=== PATIENT | female | born 2000 | race Caucasian/White ===

== ENCOUNTER 2025-05-30 19:45 | Emergency (ER) | payer SELFPAY ==
[2025-05-30] VITALS (8 sets, daily range): BP systolic 99–144; BP diastolic 63–80; PULSE 70–85; RESP 17–18; TEMP 36; O2SAT 97–100; BMI 42.5
[2025-05-30 20:28] LABS: Add Manual Diff / Slide Review NO; Hematocrit 36.4 % (36-46); Hemoglobin 12.9 g/dL (12.0-16.0); Lymphocytes Absolute Auto 1900 /uL (1100-4500); Mean Corpuscular HGB Conc 35.5 % (30-36); Mean Corpuscular Hemoglobin 31.1 PG (26-34); Mean Corpuscular Volume 87.5 fL (80-100); Platelet Count 178 X10^3/uL (150-400)
[2025-05-30 20:37] LABS: Pregnancy Test Serum,Qual Positive (Negative)
[2025-05-30 20:40] LABS: Alanine Aminotransferase 32 IU/L (<35); Albumin 4.7 g/dL (3.5-5.0); Albumin Globulin Ratio 1.7 (1.0-2.8); Alkaline Phosphatase 59 U/L (38-126); Blood Urea Nitrogen 10 mg/dL (7-17); Calcium 9.6 mg/dL (8.4-10.2); Carbon Dioxide 22 mmol/L (22-32); Chloride 105 mmol/L (98-107); Culture Indicated Urine Cult Not Indicated; Estimated Glomerular Filt Rate > 60 mL/min (>60); Globulin 2.8 g/dL (1.7-4.1); Glucose 100 mg/dL (70-99); HEMOLYSIS < 15 (0-50); Potassium 3.8 mmol/L (3.4-5.1); Sodium 137 mmol/L (137-145); Total Protein 7.5 g/dL (6.3-8.2)
--- NOTE | 2025-05-30 21:10 | DI.US.S_ITS ---
PROCEDURE: US PELVIC COMPLETE INDICATIONS: Vaginal bleeding,s/p TECHNIQUE: Real-time scanning was performed of the pelvic organs, with image documentation. Additional endovaginal scanning was necessary due to incomplete visualization of the adnexal and endometrial structures by transabdominal scanning. COMPARISON: None. FINDINGS: Uterus: Uterus is anteverted and normal in size at 8.3 x 3.6 x 5.7 cm. The myometrium is homogeneous. The endometrium is distended, and contains heterogeneous, vascular debris measuring 2.9 x 1.0 x 1.4 cm. Ovaries: The right ovary measures 2.5 x 3.4 x 2.1 cm, with a calculated ovarian volume of 9.3 cc. The left ovary measures 2.5 x 3.4 x 2.7 cm, with a calculated ovarian volume of 11.9 cc. The ovaries have a normal sonographic appearance. Less than 12 follicles can be seen in each ovary. No adnexal masses are seen. Other: No pathologic free abdominal or pelvic fluid. IMPRESSION: Endometrium contains complex, vascular debris concerning for retained products of conception. Gynecologic consultation is recommended. We strive to produce accurate, complete, and clear reports of imaging services. To assist us in improving patient care, this report was composed using standard report templates and voice recognition software. Therefore, it may contain abnormal punctuation, insertions and/or omissions. Occasional wrong-word or sound-alike substitutions may occur. Though we review the report and make efforts to correct it, we do recommend that the report be read carefully in proper context to recognize any text inaccuracies. Dictated by: Arnav Gunter M.D. on 05/30/2025 at 22:19 Approved by: Arnav Gunter M.D. on 05/30/2025 at 22:20
[2025-05-30 21:41] LABS: HCG Quantitative /Beta subunit 422.26 mIU/mL
--- NOTE | 2025-05-30 22:55 | ED_ITS ---
<Statement entered by Lorena Adams, - 05/31/25 08:01> Will have patient follow-up outpatient ADE. HPI - General Chief complaint: Vaginal Bleeding Stated complaint: complications after medical 4 wks ago Time Seen by Provider: 05/30/25 21:10 Source: patient Mode of arrival: Ambulatory Limitations: no limitations History of Present Illness HPI Narrative: Patient is a 24-year-old female history of bicornuate uterus, ectopic status post right fallopian tube removal presenting for vaginal bleeding, she states that she was a proximally 8 weeks but took a pill 4 weeks ago through an online portal. Does not have an OBGYN currently. She states that she has been having some mild bleeding for the past few weeks but today had a significant more amount of vaginal bleeding, stating she is having some mild cramping but not complaining of significant amount of. States that she had to use a super tampon every hour for the past 6 hours. She otherwise denies any other symptoms not on any blood thinners Related Data Allergies Allergy/AdvReac Type Severity Reaction Status Date / Time fructose AdvReac Mild Diarrhea Verified 05/30/25 19:58 lactose AdvReac Mild Diarrhea Verified 05/30/25 19:58 mushroom AdvReac Mild Rash Verified 05/30/25 19:58 Review of Systems Review of Systems Narrative: General: Denies fever, chills, weight loss HEENT: Denies headache, eye drainage, eye irritation, head trauma, sore throat, voice change Cardiovascular: Denies any chest pain, palpitations, tachycardia Respiratory: Denies any shortness of breath, cough, wheeze, stridor GI/: Positive vaginal bleeding Denies any abdominal pain, nausea, vomiting, diarrhea, bright red blood per rectum, melanotic stools, urinary frequency, urinary retention, dysuria, hematuria MSK: Denies any joint pain, muscle pains, swelling Skin: Denies any rashes, lesions, discoloration Neuro: Denies any headache, lightheadedness, dizziness, fainting, weakness Psych: Denies SI/HI Exam Narrative Exam Narrative: General: Cooperative, well-developed, not in acute distress HEENT: Normocephalic, atraumatic, PERRLA, normal sclera, eyelids normal Neck: Active full range of motion, atraumatic Chest: Normal to inspection, negative crepitus, no overlying erythema ecchymosis Respiratory: Normal respiratory effort, not in acute respiratory distress, clear to auscultation bilaterally negative cough, wheeze, tachypnea, rhonchi, rales Cardiology: Regular rate rhythm negative gallop, murmur, rubs GI/: No tenderness to palpation, soft, non rigid, normal to inspection, exam deferred MSK: Full active range of motion in all 4 extremities, atraumatic, no tenderness to palpation of any bony prominences Skin: No rashes or lesions noted Neuro: Alert awake oriented x3, moves all 4 extremities spontaneously, cranial nerves intact, able to answer all questions appropriately follows commands appropriately Psych: Cooperative, negative suicidal or homicidal ideations Initial Vital Signs Initial Vital Signs: Vital Signs Temperature 96.8 F L 05/30/25 19:52 Pulse Rate 85 05/30/25 19:52 Respiratory Rate 18 05/30/25 19:52 Blood Pressure 144/79 H 05/30/25 19:52 Pulse Oximetry 99 05/30/25 19:52 Oxygen Delivery Method Room Air 05/30/25 19:52 Course Orders Ordered: ED Orders 05/30/25 20:10 Complete Blood Count AUTO DIFF Stat Comprehensive Metabolic Panel Stat HCG Quantitative /Beta subunit Stat Test Serum,Qual Stat Type and Screen Stat Urine Microscopic Stat 05/30/25 21:10 US pelvic complete Stat Sodium Chloride (Normal Saline 0.9%) 1,000 mls @ 1,000 mls/hr IV BOLUS ONE Stop: 05/30/25 23:55 Last Admin: 05/30/25 23:22 Dose: 1,000 mls/hr Documented By: BERNICE Discontinued Medications Ketorolac Tromethamine (Ketorolac 30 Mg/Ml Vial) 30 mg IV NOW ONE Stop: 05/30/25 22:57 Last Admin: 05/30/25 23:22 Dose: 30 mg Documented By: BERNICE Vital Signs Vital signs: Vital Signs - 8 hr 05/30/25 19:52 05/30/25 21:09 05/30/25 21:09 Temperature 96.8 F L Pulse Rate 85 78 Respiratory Rate 18 18 Blood Pressure 144/79 H 123/79 Pulse Oximetry 99 99 Oxygen Delivery Method Room Air Room Air 05/30/25 21:30 05/30/25 21:30 05/30/25 22:00 Temperature Pulse Rate 71 74 Respiratory Rate 17 Blood Pressure 116/63 Pulse Oximetry 100 99 Oxygen Delivery Method 05/30/25 22:03 05/30/25 22:03 05/30/25 22:30 Temperature Pulse Rate 76 71 Respiratory Rate 17 17 Blood Pressure 112/80 Pulse Oximetry 98 97 Oxygen Delivery Method Room Air Room Air 05/30/25 22:30 Temperature Pulse Rate Respiratory Rate Blood Pressure 99/67 Pulse Oximetry Oxygen Delivery Method MDM - OB/Uterine Contractions Differential Diagnosis Differential diagnosis: Likely other (Retained products of conception, ) Lab Data 05/30/25 20:10 05/30/25 20:10 Labs: Lab Results 05/30/25 Range/Units 20:10 WBC 7.2 (4.5-11.0) X10^3/uL RBC 4.16 (4.0-5.2) X10^6/uL Hgb 12.9 (12.0-16.0) g/dL Hct 36.4 (36-46) % MCV 87.5 (80-100) fL MCH 31.1 (26-34) PG MCHC 35.5 (30-36) % RDW 13.0 (11.6-14.8) % Plt Count 178 (150-400) X10^3/uL Neut % (Auto) 66.3 (50-75) % Lymph % (Auto) 26.4 (25-40) % Mcdonough % (Auto) 5.8 (3-14) % Eos % (Auto) 1.0 L (2-4) % Baso % (Auto) 0.5 (0-2) % Neut # (Auto) 4800 (3084-0749) /uL Lymph # (Auto) 1900 (4915-7100) /uL Mcdonough # (Auto) 400 (0-900) /uL Eos # (Auto) 100 (0-450) /uL Baso # (Auto) 0 (0-100) /uL Sodium 137 (137-145) mmol/L Potassium 3.8 (3.4-5.1) mmol/L Chloride 105 (98-107) mmol/L Carbon Dioxide 22 (22-32) mmol/L BUN 10 (7-17) mg/dL Creatinine 0.63 (0.52-1.04) mg/dL Estimated GFR > 60 (>60) mL/min BUN/Creatinine Ratio 15.9 (6-22) Glucose 100 H (70-99) mg/dL Calcium 9.6 (8.4-10.2) mg/dL Total Bilirubin 0.4 (0.2-1.3) mg/dL AST 31 (14-36) IU/L ALT 32 (<35) IU/L Alkaline Phosphatase 59 (38-126) U/L Total Protein 7.5 (6.3-8.2) g/dL Albumin 4.7 (3.5-5.0) g/dL Globulin 2.8 (1.7-4.1) g/dL Albumin/Globulin Ratio 1.7 (1.0-2.8) HCG, Quant 422.26 mIU/mL Serum , Qual Positive H (Negative) Urine RBC 1-5/hpf (0-5/HPF) Urine WBC None seen (0-5/HPF) Ur Squamous Epith Cells 0-1 /hpf (0-5/HPF) Urine Bacteria None seen (None) Ur Culture Indicated? Cult not indicated Vol Urine Centrifuged 10ml (spun) Blood Type O Negative Antibody Screen Negative Point of Care Testing Test Results Positive Urine Dip Bedside Urine Glucose Negative Bedside Urine Bilirubin - Negative Bedside Urine Ketone - Negative Urine Specific [place] 1.015 Bedside Urine Occult Blood +++ Bedside Urine pH 6.0 Bedside Urine Protein - Negative Bedside Urine Urobilinogen - Negative Bedside Urine Nitrite - Negative Bedside Urine Leukocytes - Negative Esterase Imaging Data US - OB: Radiologist's Impression: [place] [address] Ultrasound Report Signed Patient: Ana Rosa Polo MR#: [id number] : 2000 Acct:[id number] Age/Sex: 24 / F Date of Service: 05/30/25 Loc: ED Accession Number: [id number] Procedure: US pelvic complete Ordering Provider: Víctor Lee D.O. PROCEDURE: US PELVIC COMPLETE INDICATIONS: Vaginal bleeding,s/p TECHNIQUE: Real-time scanning was performed of the pelvic organs, with image documentation. Additional endovaginal scanning was necessary due to incomplete visualization of the adnexal and endometrial structures by transabdominal scanning. COMPARISON: None. FINDINGS: Uterus: Uterus is anteverted and normal in size at 8.3 x 3.6 x 5.7 cm. The myometrium is homogeneous. The endometrium is distended, and contains heterogeneous, vascular debris measuring 2.9 x 1.0 x 1.4 cm. Ovaries: The right ovary measures 2.5 x 3.4 x 2.1 cm, with a calculated ovarian volume of 9.3 cc. The left ovary measures 2.5 x 3.4 x 2.7 cm, with a calculated ovarian volume of 11.9 cc. The ovaries have a normal sonographic appearance. Less than 12 follicles can be seen in each ovary. No adnexal masses are seen. Other: No pathologic free abdominal or pelvic fluid. IMPRESSION: Endometrium contains complex, vascular debris concerning for retained products of conception. Gynecologic consultation is recommended. MDM Narrative Medical decision making narrative: Patient is a 24-year-old female with a history of bicornuate uterus, ectopic status post right fallopian tube removal, comes into the ED from home for evaluation of persistent vaginal bleeding, she states that she was a proximally 8 weeks when she took a misoprostol pill through it [facility] portal. She states that she was having some mild bleeding over the past few weeks but states over the past 6 hours has had to go through a super tampon every hour. She does not have a OBGYN at this time. She states this is her 2nd . Ultrasound does show endometrium containing complex vaccines or debris concerning for retained products conception, did consult with OBGYN. Patient's hemoglobin stable, remainder of lab work unremarkable. 2318: Case was attacks with OB doctor Oren who states that patient most likely will need a dilation curettage however she states that she does not do this therefore is recommending to reach out to substation engineer on-call. 2324: Discussed case with Dr. Adams, is agreeable that patient currently stable enough for outpatient follow up, is recommending patient to follow up in the next 24 hours, states that they will reach out to her and will most likely schedule her to be seen in the afternoon. 2330: Patient was re-evaluated no new complaints at this time, states that she has had decreased bleeding here, she has no other symptoms, informed her of need for follow up with OBGYN in outpatient setting in the next 24 hours, she verbalized understanding of this and agrees to being discharged home with outpatient follow up Discharge Plan Departure Patient Disposition: Home Clinical Impression: Retained products of conception Activity Restrictions/Additional Instructions: Please follow up with OBGYN in the next 24 hours You may take NSAIDs such as Motrin naproxen or Aleve to help with your bleeding and pain Please read the discharge instructions sheet carefully and bring all papers to all doctor follow-up visits, as it may contain information that your doctor may want to see. Disease processes change and evolve, if your symptoms worsen or if you develop any new symptoms that are concerning to you please return for evaluation. Your evaluation today does not show any evidence of any life- threatening/serious illnesses requiring admission to the hospital or surgery. Please follow-up with your doctor for re-evaluation in approximately 1 day. Seek immediate medical attention for any worrisome symptoms. *If you do not have a primary care provider please contact the [facility] Resource line at [phone]. They will ask some questions about your medical history and help get you set up with a doctor in the community. Referrals: Lorena Adams DO [Physician, BACTERIOLOGY TEACHER] - 05/31/25 Referral Note: Retained products of conception Clinical Impression: Retained products of conception Stand Alone Forms: Patient Portal/API
[2025-05-30] MEDS: SODIUM CHLORIDE 0.9% 1,000 ML 1000 ML IV (23:22)
[2025-05-30] MEDS: KETOROLAC 30 MG/ML VIAL IV (23:22)
[2025-05-31] VITALS: BP 105/74; PULSE 70; RESP 17; O2SAT 99
== END 2025-05-31 00:31 | disposition home or self-care (01) ==
PROVIDERS: Emergency Provider Student in an Organized Health Care Education/Training Program
DX: O02.9 Abnormal product of conception, unspecified (principal)
CPT/HCPCS: 36415; 76830; 76856; 80053; 81003; 81015; 81025; 84702; 84703; 85025; 86850; 86900; 86901; 96361; 96374; 99284; J1885

== ENCOUNTER 2025-06-02 10:56 | Day surgery (SDC) | payer SELFPAY ==
[2025-06-01 07:30] VITALS: BMI 43.3
[2025-06-02] VITALS (14 sets, daily range): BP systolic 116–146; BP diastolic 72–108; PULSE 67–97; RESP 14–24; TEMP 36.3–36.6; O2SAT 98–100; BMI 43.3
--- NOTE | 2025-06-02 | PATH_ITS ---
[facility] Accession Number: [id number] No. of containers..01 Tissue . 01 Material submitted: . UTERINE - UTERINE CONTENTS . 01 Diagnosis: UTERINE CONTENTS: Scant chorionic villi, admixed with proliferative endometrium, decidualized tissue, and blood clots, consistent with products of conception. [facility] 06/06/2025 1044 Local . 01 Electronically signed: . Dianelys Campbell MD, Pathologist NPI- [id number] . 01 Gross description: . The specimen is received in formalin, labeled with two patient identifiers and uterine contents, and consists of a 6.5 x 2.5 x 1.8 cm aggregate of erwin-brown, fibromembranous tissue admixed with clotted blood. The specimen is filtered and entirely submitted in cassettes A1-A4. ([id number]) /[facility] 06/04/2025 1514 Local . 01 Pathologist provided ICD-10: O03.4 . 01 CPT . 486762 Specimen Comment: A courtesy copy of this report has been sent to [facility] Pathology Performed at: [address] [address], [place], [place] [id number] MD Eligio Page MD Phone: [phone]
[2025-06-02] MEDS: SCOPOLAMINE 1 PATCH TOP (11:56)
[2025-06-02] MEDS: LACTATED RINGERS 1,000 ML 42 ML IV ×2 (11:57→14:18)
--- NOTE | 2025-06-02 13:04 | PM.PREOP ---
Pre-operative Note Interval Note History & Physical reviewed/Exam performed by Physician: Yes Changes to H&P: No H&P completed within 30 days and has changed as indicated here:: see H&P from this week
--- NOTE | 2025-06-02 13:29 | SUR.OPER ---
Lithotomy on padded OR bed, torso on wedge, head on pillow supported by blankets, arms secured on blankets resting on padded arm boards at <90 degrees abduction. Legs secured in padded yellow fins stirrups.
--- NOTE | 2025-06-02 13:38 | PM.OP.1 ---
Operative Date/Time/Diagnoses Date of procedure: 06/02/25 Time of procedure: 13:00 Pre-op diagnosis: Suspected retained products of conception Post-op diagnosis: same Procedure & Clinicians Procedure: Suction dilation and curettage Same procedure(s) as scheduled: Yes Indications: 24yo with prolonged vaginal bleeding after medication in April, with ultrasound findings suspicious for retained products of conception, thus she was counseled and consented for the above procedure. Surgeon: Lorena Adams Click Yes if Unassisted: Yes Anesthesia Type: General Operative Notes Findings: Small amount of tissue obtained. Slow uterine bleeding noted at the end of the case after 1g TXA administered. Specimen(s): other (products of conception) Applied: none Estimated Blood Loss (mL): 100 Blood products transfused: none Procedure in detail: The risks, benefits, indications and alternatives of the procedure were reviewed with the patient and informed consent was obtained. The pt was taken to the operating room where IV sedation was obtained without difficulty. The pt was then placed in the low lithotomy position using gel-padded Aaron Stirrups. SCDs were placed bilaterally for VTE prophylaxis. The pt was then prepped and draped in the sterile fashion. A sterile speculum was placed in the patient?s vagina and the cervix was visualized.? A single tooth tenaculum was used to grasp the anterior lip of the cervix. The cervix was already dilated to accomodate a size 7mm curette. The 7mm curved suction catheter was then introduced into the uterine cavity and gently advanced to the uterine fundus. The suction device was then activated and the catheter was rotated to clear the uterus of products of conception. Several passes were performed with a moderate amount of tissue obtained. A gentle, sharp curettage was then performed until a gritty texture was noted. All tissue was sent to pathology for review. The single tooth tenaculum was then removed from the anterior lip of the cervix. The tenaculum sites were noted to be hemostatic.. All instruments were then removed from the patient?s vagina. At the completion of the case the sponge and needle counts were correct x 2. The patient tolerated the procedure well and was taken to the PACU in stable condition. Complications: none Post-operative Condition: stable Disposition: same day surgery Plan for aftercare: Discharge to home once meeting discharge criteria.
[2025-06-02] MEDS: TRANEXAMIC ACID 1,000 MG VIAL 1000 MG INH (13:40)
[2025-06-02] MEDS: ONDANSETRON 4 MG/2 ML INJ IV (13:56)
[2025-06-02] MEDS: ACETAMINOPHEN IV 1,000 MG/100 ML VIAL 400 MG IV (14:18)
[2025-06-02] MEDS: OXYCODONE IR 5 MG TABLET PO (14:29)
[2025-06-02] MEDS: RHO(D) IMMUNE GLOBULIN 1,500 UNIT SYRINGE 1500 UNIT IM (14:58)
[2025-06-02] MEDS: ePHEDrine 50 MG/ML VIAL 25 MG IM (15:34)
--- NOTE | 2025-06-02 15:39 | SUR.PHASEII ---
As pt was being wheeled to car, before leaving unit, she began to vomit and became diaphoretic. Returned to unit, d/w Dr Cope who ordered epedrine 25mg IM x 1 now. Administered to left deltoid. Will monitor for s/sx reaction.
--- NOTE | 2025-06-02 15:59 | SUR.PHASEII ---
Pt d/c'd to home via w/c; states nausea controlled after ephedrine; no vomiting,no adverse effects noted. Pt instructed to call surgeon's office if N/V returns/becomes uncontrolled.
== END 2025-06-02 15:50 | disposition home or self-care (01) ==
PROVIDERS: PCP Nurse Practitioner Family; Referring Provider Nurse Practitioner Family; Visit Provider Student in an Organized Health Care Education/Training Program
PROC: (CPT 58120; principal; 2025-06-02 12:45)
DX: O07.1 Delayed or excessive hemorrhage following failed attempted termination of pregnancy (principal)
CPT/HCPCS: 59812; J0131; J1100; J1885; J2250; J2405; J2704; J2790; J3010; J3360